=== PATIENT | male | born 1960 | race Caucasian/White ===

== ENCOUNTER 2020-01-01 09:47 | Inpatient (IN) | payer BC, OTHER ==
[~2020-01-01] VITALS: Ht 175.3 cm; Wt 82.8 kg
[2020-01-01] MEDS ORDERED: ONDANSETRON 2MG/ML, 2ML ONE (10:51)
[2020-01-01] MEDS ORDERED: HYDROmorphone 1 MG/ML, 1ML INJ ONE ×3 (10:51→21:03)
[2020-01-01] MEDS ORDERED: SODIUM CHLORIDE FLUSH 10ML SYR IVF ONE (11:00)
[2020-01-01] MEDS ORDERED: ONDANSETRON 2MG/ML, 2ML IVPush ONE (11:00)
[2020-01-01] MEDS: HYDROmorphone 1 MG/ML, 1ML INJ IVPush PRN ×3 (11:03→21:09)
--- NOTE | 2020-01-01 11:08 | NUR ---
PT REFUSED XRAY SCAN UNTIL GETS PAIN MEDS. IV STARTED, ORDERED MEDS GIVEN. LABS HAVE BEEN DRAWN. US AT BEDSIDE CURRENTLY. PT PLACED ON VITALS MONITORS. BILAT BEDRAILS UP. WILL CONTINUE TO MONITOR.
[2020-01-01 11:14] LABS: BASOPHILS % (AUTO) 0 % (0-1); EOSINOPHILS % (AUTO) 0 % (1-7); LYMPHOCYTES % (AUTO) 13 % (22-44); MEAN CORPUSCULAR HEMOGLOBIN 30.3 pg (27.5-34.5); MONOCYTES % (AUTO) 9 % (2-9); NEUTROPHILS % (AUTO) 78 % (42-75); PLATELET COUNT 205 x10^3/uL (130-400); RED BLOOD COUNT 5.38 x10^6/uL (4.38-5.82); RED CELL DISTRIBUTION WIDTH 14.8 % (9.4-14.8)
[2020-01-01 11:15] LABS: HCT (SEDRATE) 49.4 % (39.2-51.8)
[2020-01-01 11:21] LABS: INTERNATIONAL NORMALIZED RATIO 1.32 (0.93-1.1); MD NO
[2020-01-01 11:22] LABS: ALBUMIN 3.7 g/dL (3.4-5.0); ANION GAP 6 mmol/L (5-15); CALCIUM 9.7 mg/dL (8.5-10.1); CHLORIDE 108 mmol/L (98-107)
[2020-01-01 11:25] LABS: ALANINE AMINOTRANSFERASE 44 U/L (12-78); ALKALINE PHOSPHATASE 103 U/L (45-117); BILIRUBIN,TOTAL 1.3 mg/dL (0.2-1.0); CREATININE 1.23 mg/dL (0.7-1.3); TOTAL PROTEIN 7.6 g/dL (6.4-8.2)
[2020-01-01] MEDS ORDERED: KETOROLAC 30 MG/1 ML IVPush ONE (12:30)
[2020-01-01] MEDS ORDERED: KETOROLAC 30 MG/1 ML ONE (13:00)
--- NOTE | 2020-01-01 13:55 | NUR ---
ATTEMPTED TO AMBULATE PT. PT STATED, "IT'S NOT GOING TO WORK. I'VE BEEN DEALING WITH THIS FOR THREE WEEKS." LET PT KNOW THAT WE STILL HAD TO TRY. PT SAT UP, PUT FEET ON GROUND, AND REFUSED TO PUT PRESSURE ON LEG. STATED: "IT HURTS TOO MUCH, I CAN'T EVEN PUT PRESSURE ON IT."
--- NOTE | 2020-01-01 13:55 | NUR ---
PT REFUSES TO PUT WEIGHT ON LEFT LEG, STATED THE PAIN IS TOO GREAT. PT FAILED ROAD TEST, ERP AWARE, PLAN FOR ADMIT.
--- NOTE | 2020-01-01 14:05 | NUR ---
PT MEDICATED FOR PAIN PER EMAR.
--- NOTE | 2020-01-01 15:07 | NUR ---
PT IN MRI
[2020-01-01] MEDS ORDERED: GADOTERATE 10 MMOL/20 ML SYR ONE (15:34)
--- NOTE | 2020-01-01 16:39 | NUR ---
THROUGHPUT RN: HOSPITAL BED ORDERED.
[2020-01-01] MEDS ORDERED: HEARTBURN MED PO (17:42)
[2020-01-01] MEDS ORDERED: XARELTO PO (17:42)
[2020-01-01] MEDS ORDERED: ALLOPURINOL PO (17:42)
--- NOTE | 2020-01-01 17:42 | NUR ---
PT UNABLE TO RECALL MED DOSES AT THIS TIME. MED REC UPDATED BEST PT CAN REMEMBER
--- NOTE | 2020-01-01 18:11 | NUR ---
PT PLACED ON A HOSPITAL BED. PT UPDATED TO CURRENT PLAN. WILL CONTINUE TO MONITOR.
--- NOTE | 2020-01-01 19:49 | NUR ---
CALL FROM DR SAPP STATING SHE SPOKE WITH ORTHO MD AND THEY STATED IT WAS A GOUT FLAIR UP AND SHE WILL START ORDERS FOR STEROIDS AND ANTIBIOTICS AND THAT PT COULD BE PLACED ON REGULAR DIET.
--- NOTE | 2020-01-01 19:49 | NUR ---
report received from Tiff GARCIA.
[2020-01-01] MEDS ORDERED: METOCLOPRAMIDE 5 MG/ML, 2ML IVPush PRN (20:00)
[2020-01-01] MEDS ORDERED: GABAPENTIN 300 MG CAPSULE PO PRN (20:00)
[2020-01-01] MEDS ORDERED: ONDANSETRON ODT 4 MG PO PRN (20:00)
[2020-01-01] MEDS ORDERED: DOCUSATE 100 MG CAPSULE PO PRN (20:00)
[2020-01-01] MEDS ORDERED: ACETAMINOPHEN 325 MG TABLET PO PRN (20:00)
[2020-01-01] MEDS ORDERED: POLYETHYLENE GLYCOL 17 GM PACKET PO PRN (20:00)
[2020-01-01] MEDS ORDERED: methylPREDNISolone SOD SUCC 40 MG/ML IV SCH (20:00)
[2020-01-01] MEDS ORDERED: LABETALOL 5MG/ML, 20ML IVPush PRN (20:00)
[2020-01-01] MEDS ORDERED: ONDANSETRON 2MG/ML, 2ML IVPush PRN (20:00)
[2020-01-01 20:41] LABS: HCT (SEDRATE) 49.4 % (39.2-51.8)
--- NOTE | 2020-01-01 20:48 | NUR ---
PT STATES HE TAKES XALEAH IN AM
[2020-01-01] MEDS ORDERED: CEFTRIAXONE PMX 1GM/50ML 50 ML ONE (21:03)
[2020-01-01] MEDS ORDERED: PANTOPRAZOLE 40MG TABLET ONE (21:03)
[2020-01-01] MEDS ORDERED: methylPREDNISolone SOD SUCC 40 MG/ML ONE (21:03)
[2020-01-01] MEDS ORDERED: COLCHICINE 0.6 MG CAPSULE ONE (21:04)
[2020-01-01] MEDS: COLCHICINE 0.6 MG CAPSULE PO SCH (21:09)
[2020-01-01] MEDS: PANTOPRAZOLE 40MG TABLET PO SCH (21:10)
[2020-01-01] MEDS: CEFTRIAXONE PMX 1GM/50ML 50 ML IV SCH (21:10)
[2020-01-01] MEDS: LACTATED RINGERS 1,000 ML IV SCH (21:14)
--- NOTE | 2020-01-01 21:40 | NUR ---
PT MEDICATED FOR PAIN AND PM MEDS, SANDWHICH AND WATER PROVIDED.
--- NOTE | 2020-01-01 22:30 | NUR ---
PT RESTING COMFORTABLY, NO NEEDS AT THIS TIME
--- NOTE | 2020-01-01 23:40 | NUR ---
REPORT GIVEN TO TAL GARCIA
[2020-01-02 00:30] VITALS: BP 127/79
[2020-01-02] MEDS ORDERED: methylPREDNISolone SOD SUCC 40 MG/ML IV ONE ×2 (00:30→14:00)
[2020-01-02] MEDS: TEMAZEPAM 15 MG CAPSULE PO PRN ×2 (00:54→20:44)
[2020-01-02] MEDS: morphine SULFATE 10 MG/ML, 1ML IVPush PRN ×2 (00:58→11:12)
[2020-01-02 02:03] LABS: MICROSCOPIC NOT IND
[2020-01-02 02:32] VITALS: BP 106/66
[2020-01-02 05:38] LABS: MEAN CORPUSCULAR HEMOGLOBIN 30.6 pg (27.5-34.5); MEAN PLATELET VOLUME 8.9 fL (7.4-10.4); PLATELET COUNT 183 x10^3/uL (130-400); RED BLOOD COUNT 5.02 x10^6/uL (4.38-5.82); RED CELL DISTRIBUTION WIDTH 14.5 % (9.4-14.8)
[2020-01-02 05:47] LABS: CHLORIDE 108 mmol/L (98-107)
[2020-01-02 06:07] LABS: ALANINE AMINOTRANSFERASE 34 U/L (12-78); ALBUMIN 3.2 g/dL (3.4-5.0); ALKALINE PHOSPHATASE 99 U/L (45-117); ANION GAP 8 mmol/L (5-15); BILIRUBIN,TOTAL 0.9 mg/dL (0.2-1.0); CALCIUM 9.7 mg/dL (8.5-10.1); CHOL/HDL RATIO 2.8; CHOLESTEROL, TOTAL 168 mg/dL (140-239); CREATININE 1.15 mg/dL (0.7-1.3); HDL CHOL % 35 % (26-37); HDL CHOLESTEROL (DIRECT) 59 mg/dL (40-60); LDL CHOLESTEROL,CALCULATED 102 mg/dL (54-169); LDL/HDL RATIO 1.7 (0.5-3.0); TOTAL PROTEIN 7.3 g/dL (6.4-8.2); TRIGLYCERIDES 37 mg/dL (50-200); VLDL CHOLESTEROL 7 mg/dL (0-25)
[2020-01-02 06:27] VITALS: BP 114/73
[2020-01-02 06:36] LABS: MD YES
[2020-01-02 06:38] LABS: <RBC MORPHOLOGY> NORMAL; LYMPH#(MANUAL) 0.49 x10^3/uL (1-3.4); LYMPHS% (MANUAL) 9 % (22-44); SEG#(MANUAL) 4.91 x10^3/uL (1.8-6.8); SEGS% (MANUAL) 91 % (42-75)
[2020-01-02 06:39] LABS: <PLATELET ESTIMATE> ADEQUATE; <PLT MORPHOLOGY> NORMAL PLT MORPH
[2020-01-02 07:09] LABS: HCT (SEDRATE) 46.5 % (39.2-51.8)
[2020-01-02] MEDS ORDERED: PANTOPRAZOLE 40MG TABLET PO SCH (07:30)
[2020-01-02] MEDS: COLCHICINE 0.6 MG CAPSULE PO SCH ×2 (09:36→20:33)
[2020-01-02] MEDS: LACTATED RINGERS 1,000 ML IV SCH ×2 (09:36→22:27)
[2020-01-02] MEDS: PANTOPRAZOLE 40MG TABLET PO SCH ×2 (09:36→20:33)
[2020-01-02] MEDS ORDERED: FLU VACC QS2020-21(6MOS UP)/PF 60MCG/0.5 ML SYR IM-VACC ONE (12:30)
[2020-01-02 13:35] VITALS: BP 130/87
[2020-01-02 16:45] LABS: ANA SCREEN POSITIVE (Negative); ANTI-NUCLEAR ANTIBODY PATTERN SPECKLED
[2020-01-02] MEDS: RIVAROXABAN 20 MG TABLET PO SCH (17:27)
[2020-01-02 19:29] VITALS: BP 136/93
[2020-01-02] MEDS: CEFTRIAXONE PMX 1GM/50ML 50 ML IV SCH (20:43)
[2020-01-02] MEDS: OXYcodone IR 5MG TABLET PO PRN ×2 (20:44→22:26)
[2020-01-03 02:30] VITALS: BP 131/88
[2020-01-03 06:35] LABS: ANION GAP 8 mmol/L (5-15); CALCIUM 9.5 mg/dL (8.5-10.1); CHLORIDE 113 mmol/L (98-107); CREATININE 1.11 mg/dL (0.7-1.3)
[2020-01-03] MEDS: OXYcodone IR 5MG TABLET PO PRN ×3 (06:44→23:09)
[2020-01-03 08:14] VITALS: BP 147/85
[2020-01-03] MEDS: COLCHICINE 0.6 MG CAPSULE PO SCH ×2 (09:14→20:05)
[2020-01-03] MEDS: PANTOPRAZOLE 40MG TABLET PO SCH ×2 (09:14→20:05)
[2020-01-03] MEDS: morphine SULFATE 10 MG/ML, 1ML IVPush PRN (11:05)
[2020-01-03] MEDS ORDERED: methylPREDNISolone SOD SUCC 125 MG/2 ML IVPush ONE (13:00)
[2020-01-03] MEDS: LACTATED RINGERS 1,000 ML IV SCH (13:12)
[2020-01-03 14:16] VITALS: BP 144/86
[2020-01-03] MEDS: RIVAROXABAN 20 MG TABLET PO SCH (16:54)
[2020-01-03 19:08] VITALS: BP 132/75
[2020-01-03] MEDS: CEFTRIAXONE PMX 1GM/50ML 50 ML IV SCH (20:06)
[2020-01-03] MEDS ORDERED: MELATONIN 5 MG TABLET PO PRN (22:00)
[2020-01-04 02:03] VITALS: BP 146/89
[2020-01-04 05:05] LABS: HCT (SEDRATE) 43.6 % (39.2-51.8)
[2020-01-04 05:13] LABS: ANION GAP 3 mmol/L (5-15); CALCIUM 9.3 mg/dL (8.5-10.1); CHLORIDE 108 mmol/L (98-107); CREATININE 1.16 mg/dL (0.7-1.3)
[2020-01-04 07:19] VITALS: BP 149/80
[2020-01-04] MEDS: COLCHICINE 0.6 MG CAPSULE PO SCH (08:30)
[2020-01-04] MEDS: PANTOPRAZOLE 40MG TABLET PO SCH (08:30)
[2020-01-04] MEDS ORDERED: COLC0.6C3 PO (12:23)
[2020-01-04] MEDS ORDERED: OXYC5TAB3 PO (12:23)
[2020-01-04] MEDS ORDERED: PANT40TA6 PO (12:23)
[2020-01-04] MEDS ORDERED: RIVA20TA PO (12:23)
[2020-01-04] MEDS ORDERED: PRED10TA PO (12:23)
[2020-01-04] MEDS ORDERED: ACET325T26 PO (12:23)
[2020-01-04] MEDS ORDERED: ONDA4TAB13 PO (12:23)
[2020-01-04] MEDS ORDERED: methylPREDNISolone SOD SUCC 125 MG/2 ML IVPush SCH (12:30)
[2020-01-04 12:37] VITALS: BP 136/84
[2020-01-04] MEDS: OXYcodone IR 5MG TABLET PO PRN (13:26)
[2020-01-04] MEDS ORDERED: OXYC10TA6 PO ×2 (14:12→14:13)
== END 2020-01-04 15:30 | disposition home or self-care (01) | DRG 554 ==
LOC: ED 10:40 → EDIP 14:07 → 4WST 01-02 00:13 → DCLOUNGE 01-04 15:26
PROVIDERS: ADMIT Internal Medicine; ATTEND Internal Medicine
DX: M10.9 Gout, unspecified (principal); F43.10 Post-traumatic stress disorder, unspecified; Z79.01 Long term (current) use of anticoagulants; Z86.711 Personal history of pulmonary embolism; Z86.718 Personal history of other venous thrombosis and embolism; Z87.891 Personal history of nicotine dependence; Z23 Encounter for immunization
CPT/HCPCS: 36415; 80048; 80053; 80061; 81003; 83735; 84100; 84443; 84550; 85025; 85610; 85651; 86038; 86039; 86140; 86430; 87040; 90686; 93926; 96374; 96375; 99285; G0378; J0696; J1170; J1885; J2405; Q0162; A9575; J2270; J2920; J2930; J7120